=== PATIENT | female | born 1965 | race American Indian/Alaskan Native ===

== ENCOUNTER 2017-09-09 09:33 | Emergency (ER) | payer OTHER ==
[2017-09-09 14:01] VITALS: BP 164/61
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
== END 2017-09-09 16:59 | disposition home or self-care (01) ==
LOC: ED 09:33
DX: M79.1 Myalgia (principal); I10 Essential (primary) hypertension; G43.909 Migraine, unspecified, not intractable, without status migrainosus; V49.49XA Driver injured in collision with other motor vehicles in traffic accident, initial encounter; Y93.9 Activity, unspecified; Y92.9 Unspecified place or not applicable; Y99.9 Unspecified external cause status
CPT/HCPCS: 99282